=== PATIENT | male | born 1950 | race Caucasian/White ===

== ENCOUNTER 2020-09-14 17:09 | Emergency (ER) | payer MEDICARE, OTHER ==
[~2020-09-14 17:09] MED LIST: DOXAZOSIN MESYLA1 MG GT; GABAPENTIN250 MG/5 M GT; LACTULOSE10 GM/151 GT; LEVOFLOXAC250 MG/10 PO; LEVOFLOXACIN500 MG PO; LEVOTHYROXINE50 MCG GT; MIRTAZAPINE15 MG GT; OXYBUTYNIN5 MG/5 ML GT; OXYCODONE H5 MG/5 ML GT; PREDNISOLO15 MG/5 ML PO; PREDNISONE10 MG GT; VALIUM 5 MG TAB5 MG GT
[2020-09-14 17:43] LABS: HEMOGLOBIN 11.9 gm/dl (14.0-17.5); RED BLOOD COUNT 3.88 M/UL (4.20-5.50); WHITE BLOOD COUNT 9.9 K/UL (4.5-11.0)
[2020-09-14 18:07] LABS: BUN/CREATININE RATIO 30 (0-10)
== END 2020-09-14 22:35 | disposition home or self-care (01) ==
LOC: ER1 17:09
PROVIDERS: Emergency Medicine
DX: R32 Unspecified urinary incontinence (principal); R53.81 Other malaise; E03.9 Hypothyroidism, unspecified; Z85.118 Personal history of other malignant neoplasm of bronchus and lung; Z79.899 Other long term (current) drug therapy; Z20.822 Contact with and (suspected) exposure to COVID-19
CPT/HCPCS: 51701; 71045; 80053; 81001; 82550; 82553; 83874; 83880; 84484; 85025; 93005; 99285; U0002